=== PATIENT | female | born 1990 | race Caucasian/White ===

== ENCOUNTER 2017-01-03 17:53 | Emergency (ER) | payer SELFPAY ==
[2010-05-04 19:25] VITALS: BMI 25.2
== END 2017-01-03 20:55 | disposition home or self-care (01) ==
LOC: D.ER 17:53
DX: K64.5 Perianal venous thrombosis (principal)

== ENCOUNTER 2017-06-02 05:51 | Inpatient (IN) | payer MEDICAID ==
[~2017-06-02] VITALS: Ht 167.6 cm; Wt 75.3 kg
[2017-06-02 06:42] LABS: HEMATOCRIT 39.6 % (36.0-48.0); HEMOGLOBIN 13.5 g/dL (12-16); MCH 29.1 pg (26.0-34.0); MCHC 34.1 g/dL (31.0-37.0); MCV 85.3 fL (80.0-100.0); MEAN PLATELET VOLUME 12.5 fL (7.4-10.4); RBC 4.64 10x6/uL (4.00-5.40); RDW 14.6 % (11.5-14.5); WBC 13.7 10x3/uL (4.8-10.8)
[2017-06-02 08:43] LABS: UDS - AMPHET NEGATIVE QUAL (NEGATIVE); UDS - BARB NEGATIVE QUAL (NEGATIVE); UDS - BENZO NEGATIVE QUAL (NEGATIVE); UDS - COCAINE NEGATIVE QUAL (NEGATIVE); UDS - METH NEGATIVE QUAL (NEGATIVE); UDS - OPIATE NEGATIVE QUAL (NEGATIVE); UDS - PCP NEGATIVE QUAL (NEGATIVE); UDS - THC NEGATIVE QUAL (NEGATIVE)
--- NOTE | 2017-06-02 14:18 | NUR ---
PT UP AND ABOUT IN ROOM. IN ROOM. REQUESTING ICE FOR APPLE JUICE.
[2017-06-02 14:36] VITALS: BP 104/57
--- NOTE | 2017-06-02 15:51 | NUR ---
lights in room dim- position is on lt side. not awakened at this time.
[2017-06-02 16:33] VITALS: BP 95/53; Ht 167.6 cm; Wt 75.3 kg
--- NOTE | 2017-06-02 17:03 | NUR ---
PT REQUESTING PAIN MEDICATION- CO PAIN ABD "IN GENERAL" RATES PAIN A 9 ON SCALE OF 0-10. PAIN MED GIVEN.
--- NOTE | 2017-06-02 19:09 | NUR ---
BEDSIDE REPORT REC'D FROM Shar ZAMUDIO RN. PT SITTING ON EDGE OF BED VISITING WITH VISITORS. VISITOR HOLDING AT THIS TIME. RESPIRATIONS REGULAR AND UNLABORED, NO S/S OF DISTRESS NOTED. BED IN LOW POSITION WITH UPPER SIDE RAILS RAISED X2. CL AND PHONE WITHIN REACH.
[2017-06-02 19:48] VITALS: BP 114/75
--- NOTE | 2017-06-02 19:48 | NUR ---
SHIFT ASSESSMENT COMPLETED. VSS. FUNDUS FIRM, U1 WITH SMALL AMT RUBRA LOCHIA NOTED TO PERIPAD, NO CLOTS NOTED. BOWEL SOUNDS PRESENT AND ACTIVE X4 QUADRANTS. PT REPORTS THAT SHE IS VOIDING WITHOUT DIFFICULTY, C/O BURNING TO STITCH WITH VOIDS. ALSO REPORTS BURNING AND STINGING OF HEMORRHOIDS. STATES THAT SHE IS PASSING FLATUS. ICE WATER AND ICE CHIPS GIVEN PER REQUEST. DENIES ADDITIONAL NEEDS AT THIS TIME. S/O AT BEDSIDE AND SUPPORTIVE OF PT. BED IN LOW POSITION WITH UPPER SIDE RAILS RAISED X2. CL AND PHONE WITHIN REACH. WILL CONT TO MONITOR AND ASSIST PRN.
--- NOTE | 2017-06-02 21:22 | NUR ---
ROUNDS MADE. PT SITTING IN HIGH FOWLERS POSITION BONDING WITH . DENIES NEEDS AT THIS TIME. S/O REMAINS AT BEDSIDE. SPOKE WITH DR. VU REGARDING C/O WITH VOIDING AND HEMORRHOIDS. ORDERS REC'D FOR TUX, EPIFOAM, AND DERMAPLAST. WILL CONT TO MONITOR AND ASSIST PRN.
--- NOTE | 2017-06-02 22:06 | NUR ---
PAIN 7/10 PERIURTHEREAL REPAIR AND ABD CRAMPING AND SORNESS. REQUESTS NORCO, GIVEN PER REQUEST. EPIFOAM, TUX, AND DERMAPLAST PROVIDED TO PT PER ORDERS. INSTRUCTED ON USE, VERBALIZED UNDERSTANDING REPORTING THAT SHE HAD USED ALL WITH HER PREVIOUS DELIVERY A YEAR AGO AND RECALLED HOW TO USE. SANDWICH TRAY PROVIDED PER REQUEST. BED IN LOW POSITION WITH UPPER SIDE RAILS RAISED X2. CL AND PHONE WITHIN REACH. S/O REMAINS AT BEDSIDE AND SUPPORTIVE OF PT. WILL CONT TO MONITOR AND ASSIST PRN.
--- NOTE | 2017-06-02 22:51 | NUR ---
PAIN REASSESSMENT COMPLETED. PAIN 2-12/28. TOWELS AND WASH CLOTHES PROVIDED. PT UP TO SHOWER. DENIES NEED FOR ASSISTANCE. S/O REMAINS IN ROOM. INSTRUCTED ON CL USE IN BATHROOM FOR NEEDS, VERBALIZED UNDERSTANDING.
--- NOTE | 2017-06-02 23:14 | NUR ---
PT OUT OF SHOWER, SITTING IN BED IN HIGH FOWLERS POSITION. DENIES NEEDS AT THIS TIME. S/O REMAINS AT BEDSIDE. BED IN LOW POSITION WITH UPPER SIDE RAILS RAISED X2. CL AND PHONE WITHIN REACH. WILL CONT TO MONITOR AND ASSIST PRN.
--- NOTE | 2017-06-03 00:33 | NUR ---
BEDSIDE ROUNDS MADE. ICE CHIPS GIVEN PER REQUEST. PT REPORTS THAT SHE HAS BEEN AMBULATING AROUND UNIT. DENIES ADDITIONAL NEEDS. WILL CONT TO MONITOR AND ASSIST PRN. BED IN LOW POSITION WITH UPPER SIDE RAILS RAISED X2. CL AND PHONE WITHIN REACH.
--- NOTE | 2017-06-03 02:15 | NUR ---
ROUNDS MADE. PT AMBULATING IN [place] AT THIS TIME, STEADY GAIT NOTED. PAIN 4-5/10, PAIN MEDICATION OFFERED AND DECLINED. PT REPORTS THAT SHE WILL NOTIFY RN WHEN SHE NEEDS PAIN MEDICATIONS. WILL CONT TO MONITOR AND ASSIST PRN.
--- NOTE | 2017-06-03 02:42 | NUR ---
PT AMBULATES TO LABOR AND DELIVERY DESK, C/O PAIN, RATES 7/10. 1 TAB IBUPROFEN AND 1 TAB NORCO 5 PROVIDED TO PT AT THIS TIME. PT DENIES ANY FURTHER NEEDS. PT AMBULATING WITHOUT DIFFICULTY. WILL CONT TO MONITOR PT STATUS.
--- NOTE | 2017-06-03 03:26 | NUR ---
PAIN REASSESSMENT COMPLETE. PAIN NOW 01/28. ICE AND SODA GIVEN PER REQUEST. DENIES ADDITIONAL. S/O REMAINS AT BEDSIDE AND SUPPORTIVE OF PT. NB AT BEDSIDE RESTING QUIETLY IN CRIB. RESPIRATIONS REGULAR AND UNLABORED, NO S/S OF DISTRESS NOTED. WILL CONT TO MONITOR AND ASSIST PRN.
--- NOTE | 2017-06-03 04:39 | NUR ---
RN TO BEDSIDE FOR ROUNDS. PT LAYING ON RIGHT SIDE RESTING WITH EYES CLOSED. RESPIRATIONS REGULAR AND UNLABORED. NO S/S OF DISTRESS NOTED. BED IN LOW POSITION WITH UPPER SIDE RAILS RAISED X2. CL AND PHONE WITHIN REACH. WILL CONT TO MONITOR AND ASSIST PRN.
--- NOTE | 2017-06-03 05:57 | NUR ---
RN TO BEDSIDE FOR ROUNDS. PT LAYING ON RIGHT SIDE RESTING WITH EYES CLOSED. RESPIRATIONS REGULAR AND UNLABORED, NO S/S OF DISTRESS NOTED. S/O RESTING ON COUCH WITH EYES CLOSED. BED IN LOW POSITION WITH UPPER SIDE RAILS RAISED X2. CL AND PHONE WITHIN REACH. WILL CONT TO MONITOR AND ASSIST PRN.
[2017-06-03 07:50] VITALS: BP 97/63
--- NOTE | 2017-06-03 07:50 | NUR ---
THIS RN TO ROOM FOR SHIFT ASSESSMENT. PT SITTING UP IN BED. PT C/O PAIN IN ABD AND PERINEUM RATED 6/10 AT REST, WORSE WITH MOVEMENT. PT REQUESTING PAIN MEDICATION. SHIFT ASSESSMENT COMPLETED, VSS, SEE FLOWSHEET FOR DOC. PT DENIES HEAVY LOCHIA LAST NIGHT. PT INSTRUCTED ON WHAT TO REPORT, UNDERSTANDING VERBALIZED. DISCHARGE TO ROOM IN DISCUSSED WITH PT. PT DENIES QUESTIONS, VERBALIZES UNDERSTANDING. WILL ADMIN PRN PAIN MED ORDERED. SRUx2, CL IN REACH.
--- NOTE | 2017-06-03 08:06 | NUR ---
PT ADMIN PRN NORCO ORDERED, PT REQUESTS TO HAVE MOTRIN TOO. PT INSTRUCTED IT IS NOT YET TIME FOR MOTRIN PER ORDERED SCHEDULE. PT STATES "I HOPE HE'S GOING TO AT LEAST SEND ME HOME WITH A COUPLE OF NORCO'S FOR MY PAIN." PT INSTRUCTED DR VU HAS ONLY ORDERED IBUPROFEN FOR PAIN MANAGEMENT AFTER D/C DUE TO NO CARE AND HE DOES NOT KNOW PT'S HISTORY. PT AGITATED, STATES "I'LL JUST BUY THEM OFF THE STREET THEN" AND BEGINS TALKING ABOUT HER OTHER CHILDREN SHE HAS TO CARE FOR DEALING WITH PAIN. PT INSTRUCTED [place] RN WILL BRING INFANT IN SOON FOR 0830 FEEDING. PT STATES SHE IS TIRED AND JUST WANTS TO SLEEP. PT ALSO STATES SHE IS GOING TO [place] TO EAT BREAKFAST WITH FOB TO USE MEAL TICKET. PT INSTRUCTED SHE HAS TIME TO GO GET A QUICK BREAKFAST BEFORE INFANT FEEDING TIME. WILL RETURN FOR PAIN REASSESSMENT.
[2017-06-03 08:11] LABS: BASOPHILS 0.1 % (0-2); EOSINOPHILS 1.1 % (0-7); HEMATOCRIT 32.8 % (36.0-48.0); HEMOGLOBIN 11.1 g/dL (12-16); IMMATURE GRANULOCYTES 0.2 % (0-5); LYMPHOCYTES 25.5 % (15-50); MCH 29.1 pg (26.0-34.0); MCHC 33.8 g/dL (31.0-37.0); MCV 85.9 fL (80.0-100.0); MEAN PLATELET VOLUME 12.3 fL (7.4-10.4); MONOCYTES 6.3 % (2-11); NEUTROPHILS 66.8 % (40-80); PLATELET COUNT 153 10x3/uL (130-400); RBC 3.82 10x6/uL (4.00-5.40); RDW 14.6 % (11.5-14.5)
[2017-06-03 08:23] LABS: WBC 9.6 10x3/uL (4.8-10.8)
--- NOTE | 2017-06-03 08:55 | NUR ---
THIS RN TO ROOM FOR PT CHECK. PT, NOR ANY VISITORS FOUND IN ROOM. NSY RN NOTES THAT SHE TOOK BABY BACK TO [facility] AT 0839. WILL RETURN FOR PT CHECK.
[2017-06-03] MEDS ORDERED: IBUPROFEN600 MG PO (09:04)
--- NOTE | 2017-06-03 09:10 | NUR ---
THIS RN TO ROOM FOR PT CHECK. PT STILL NOT IN ROOM. THIS RN CHECKS [place] WHERE PT REPORTED SHE WAS GOING FOR BREAKFAST WITH FOB, PT NOT FOUND. WAITING AREAS AND MAIN ENTRANCE NEAR [place] CHECK, PT NOT FOUND. WILL RECHECK ROOM SHORTLY.
--- NOTE | 2017-06-03 09:48 | NUR ---
THIS RN TO ROOM LOOKING FOR PT, NOT FOUND. THIS RN LOOKS THOUGH WAITING AREAS. PT FOUND WALKING NEAR [place] WITH FOB. PT INSTRUCTED TO RETURN TO ROOM. PT TO ROOM WITH THIS RN. PAIN REASSESSMENT COMPLETED. PT RATES PAIN 8/10, ABD CRAMPING, WORSE AFTER WALKING. PT ADMIN PRN IBUPROFEN ORDERED. WILL PROCEED WITH DISCHARGE ORDERED.
--- NOTE | 2017-06-03 10:10 | NUR ---
DISCHARGE INSTRUCTIONS GIVEN ALONG WITH WRITTEN PRESCRIPTION FOR IBUPROFEN FOR PAIN CONTROL POST DISCHARGE TO HOME/ROOM IN. PT VERBALIZES UNDERSTANDING OF INSTRUCTIONS AND DENIES QUESTIONS. ROOMING -IN AGREEMENT REVIEWED IN DEPTH WITH PT, PT AGREES TO TERMS AND SIGNS AGREEMENT. PT CELL PHONE NUMBER OBTAINED FOR CONTACT FOR NURSERY. PT AMBULATES TO ROOM 1215 TO ROOM IN, INSTRUCTIONS AND PRESCRIPTION IN HAND.
[2017-06-04 06:13] LABS: RAPID PLASMA REAGIN Non Reactive (Non Reactive)
[2017-06-04 11:17] LABS: HEPATITIS C ANTIBODY <0.1 (0.0-0.9)
[2017-06-04 13:15] LABS: HGB SOLUBILITY (SICKLE SCREEN) Negative (Negative)
[2017-06-04 14:19] LABS: RUBELLA IGG 4.21 index (Immune >0.99)
== END 2017-06-03 10:10 | disposition home or self-care (01) | DRG 775 ==
LOC: D.LDO 05:51 → D.LD 06:24
PROVIDERS: ADMIT Obstetrics & Gynecology
PROC: 10E0XZZ Delivery of Products of Conception, External Approach (ICD-10-PCS; principal; 2017-06-02)
PROC: 10907ZC Drainage of Amniotic Fluid, Therapeutic from Products of Conception, Via Natural or Artificial Opening (ICD-10-PCS; 2017-06-02)
DX: O80 Encounter for full-term uncomplicated delivery (principal); Z3A.39 39 weeks gestation of pregnancy; Z37.0 Single live birth

== ENCOUNTER 2018-06-17 09:42 | Emergency (ER) | payer MEDICAID ==
[~2018-06-17] VITALS: Ht 167.6 cm; Wt 59.1 kg
[~2018-06-17 09:42] MED LIST: IBUPROFEN600 MG PO
[2018-06-17 09:58] VITALS: Ht 167.6 cm; Wt 59.1 kg
[2018-06-17] MEDS ORDERED: ULTRAM50 MG PO (10:24)
[2018-06-17] MEDS ORDERED: CLEOCIN HCL300 MG PO (10:24)
[2018-06-17 11:55] VITALS: BP 129/74
== END 2018-06-17 11:56 | disposition home or self-care (01) ==
LOC: D.ER 09:42
DX: N61.1 Abscess of the breast and nipple (principal); F17.200 Nicotine dependence, unspecified, uncomplicated

== ENCOUNTER 2019-04-12 06:34 | Inpatient (IN) | payer MEDICAID ==
[~2019-04-12 06:34] MED LIST changes: +CLEOCIN HCL300 MG PO; +ULTRAM50 MG PO
[2019-04-12 07:35] LABS: BASOPHILS 0.1 % (0-2); EOSINOPHILS 1.2 % (0-7); HEMATOCRIT 35.3 % (36.0-48.0); HEMOGLOBIN 12.3 g/dL (12-16); IMMATURE GRANULOCYTES 0.5 % (0-5); LYMPHOCYTES 28.8 % (15-50); MCH 28.7 pg (26.0-34.0); MCHC 34.8 g/dL (31.0-37.0); MCV 82.5 fL (80.0-100.0); MEAN PLATELET VOLUME 11.8 fL (7.4-10.4); MONOCYTES 8.4 % (2-11); PLATELET COUNT 294 10x3/uL (130-400); RBC 4.28 10x6/uL (4.00-5.40); RDW 14.7 % (11.5-14.5); WBC 14.5 10x3/uL (4.8-10.8)
[2019-04-12 10:44] VITALS: BP 111/63; BMI 24.7
--- NOTE | 2019-04-12 12:13 | NUR ---
INFANT TO ROOM VIA CRIB, SWADDLED X 2 AND HAT ON.PT IN SEMI FOWLERS POSITION. FOB ON COUCH. EXPLAINED TO PT THAT NEEDS TO REMAIN SWADDLED AND WITH THE HAT ON. BOTH VERB. UNDERSTANDING. PT OPTS TO LEAVE IN CRIB AT THIS TIME. SANDWICH TRAY PROVIDED PER REQUEST. FUNDUS REMAINS FIRM AND MIDLINE. U/U. LIGHT RUBRA LOCHIA NOTED ON PARTH PAD. NO CLOTS NOTED. PT RATING PAIN 8/10 IN ABDOMEN AND DESCRIBES CRAMPING. TORADOL GIVEN PRN ORDERED. PT DENIES FURTHER NEEDS AT THIS TIME.
[2019-04-12 12:21] LABS: UDS - AMPHET NEGATIVE QUAL (NEGATIVE); UDS - BARB NEGATIVE QUAL (NEGATIVE); UDS - BENZO NEGATIVE QUAL (NEGATIVE); UDS - COCAINE NEGATIVE QUAL (NEGATIVE); UDS - OPIATE NEGATIVE QUAL (NEGATIVE); UDS - PCP NEGATIVE QUAL (NEGATIVE); UDS - THC POSITIVE QUAL (NEGATIVE)
--- NOTE | 2019-04-12 13:50 | NUR ---
PT AND FOB NOT IN ROOM
[2019-04-12 15:05] VITALS: BP 98/60
--- NOTE | 2019-04-12 15:05 | NUR ---
PT IN HIGH FOWLERS POSITION. UP TO FAMILY ARMS BONDING. VSS, SEE FLOW SHEET. FUNDUS FIRM U/U. LIGHT RUBRA LOCHIA NOTED. NO CLOTS EXPRESSED. PT RATES PAIN 6/10 AND DESCRIBES CRAMPING. PT DENIES FURTHER NEEDS AT THIS TIME.
--- NOTE | 2019-04-12 16:25 | NUR ---
REPORT OF PT CONTINUED REPORT OF PAINFUL CRAMPING CALLED TO DR OLIVER. NEW ORDER RECIEVED AND NOTED.
--- NOTE | 2019-04-12 16:50 | NUR ---
REPORT TO DR OLIVER OF PT ALLERGIES. ORDER RECIEVED TO DC TYLENOL 3 ORDERS AND TO ORDER ULTRAM 50MG PO Q 6HRS PRN FOR PAIN.
--- NOTE | 2019-04-12 17:26 | NUR ---
PT SITTING UP ON SIDE OF BED EATING REGULAR DIET TRAY. PT RATING PAIN 9/10 AND DESCRIBES CRAMPING IN LOWER ABDOMEN AND BACK. ULTRAM 50MG GIVEN PO. VS OBTAINED AND STABLE. SEE FLOWSHEET. APPLE JUICE AND SPRITE PROVIDED. PT DENIES FURTHER NEEDS.
[2019-04-12 17:27] VITALS: BP 114/68
--- NOTE | 2019-04-12 18:30 | NUR ---
PT NOT IN ROOM AT THIS TIME.
--- NOTE | 2019-04-12 19:22 | NUR ---
BEDSIDE SHIFT REPORT COMPLETED WITH SHELBY GALLARDO AT THIS TIME TO ASSUME PATIENT CARE.
[2019-04-12 19:25] VITALS: BP 95/40
--- NOTE | 2019-04-12 19:25 | NUR ---
SALINE LOCK REMOVED PER PT REQUEST, SHE HAD BUMPED IT SEVERAL TIMES AND IT WAS COMING OUT AND BOTHERING HER. PRESSURE AND BANDAID APPLIED, PT TOLERATED WELL.
--- NOTE | 2019-04-12 19:28 | NUR ---
SHIFT ASSESSMENT COMPLETED AT THIS TIME, SEE FLOWSHEET. BED REMAINS LOCKED IN LOW POSITION, SIDE RAIL UPX2, CALL MANZANO AND TRAY TABLE IN REACH, PT ENCOURAGED TO CALL WITH ANY NEEDS.
--- NOTE | 2019-04-12 20:00 | NUR ---
SHELBY MCBRIDE TO ROOM TO BRING BABY BACK VIA OPEN CRIB. PT DENIES NEEDS, REQUESTS THAT THE L&D NURSE AND THE NURSERY NURSE CLUSTER HER CARE SO SHE CAN SLEEP
--- NOTE | 2019-04-12 21:04 | NUR ---
PT ASLEEP BUT EASILY AWAKENED. SCHEDULED DOSE OF CYTOTEC GIVEN AT THIS TIME. NO DISTRESS NOTED. Rubens RODRÍGUEZ RN
--- NOTE | 2019-04-12 21:05 | NUR ---
IN TO PTS ROOM TO ADMINISTER CYTOTEC AND PT IS NOT IN HER ROOM AT THIS TIME.
--- NOTE | 2019-04-12 22:22 | NUR ---
PT IS BACK IN HER ROOM, CYTOTEC 200MCG PO ADMINISTERED BY THIS RN. EMAR SHOWING THAT SHE WAS GIVEN CYTOTEC AT 2104 BUT THIS RN DID NOT ADMINISTER CYTOTEC DUE TO PATIENT NOT BEING IN THE ROOM. WILL CONTACT PHARMACY IN THE MORNING.
--- NOTE | 2019-04-13 01:18 | NUR ---
PATIENT ADMINISTERED ULTRAM PER MD ORDERS AND PT REQUEST, SEE EMAR. PT GIVEN SNACKS PER REQUEST, DENIES OTHER NEEDS, WILL CONTINUE TO MONITOR.
--- NOTE | 2019-04-13 01:21 | NUR ---
PT RESTING QUIETLY WITH EYES CLOSED, RESPIRATIONS EVEN AND NON LABORED, NO SIGNS OF DISTRESS NOTED. WILL CONTINUE TO MONITOR.
--- NOTE | 2019-04-13 03:18 | NUR ---
ADMINISTERED TORADOL 10MG PO PER PT REQUEST. NO FURTHER NEEDS IDENTIFIED.
--- NOTE | 2019-04-13 04:00 | NUR ---
CALLED TO ROOM BY PATIENT, PT ASKING IF I COULD COME SIT IN THE ROOM WITH THE BABY WHILE SHE GOES OUT TO SMOKE BECAUSE THE NURSERY NURSE STATES THAT SHE IS DOING HEARING SCREENS AND CANT WATCH THE BABY. INFORMED PT THAT I COULDNT SIT IN HER ROOM DUE TO THE VOLUME OF PTS ON LABOR AND DELIVERY. SHE ASKED IF I COULD CALL YELITZA TO REQUEST THAT THE BABY GO TO THE NURSERY. INFORMED PT THAT I WOULD. BERVERLY CALLED WITH NO ANSWER AT THIS TIME.
--- NOTE | 2019-04-13 04:10 | NUR ---
CALLED DR OLIVER TO NOTIFY HIM THAT PATIENTS PAIN IS NOT BEING CONTROLLED WITH THE TORADOL AND ULTRAM, NEW ORDER NOTED FOR NORCO 5/325MG PO Q4HRS PRN PAIN.
--- NOTE | 2019-04-13 06:50 | NUR ---
REPORT TO AM SHIFT TO ASSUME PT CARE.
[2019-04-13 07:30] VITALS: BP 95/60
--- NOTE | 2019-04-13 07:30 | NUR ---
AM ASSESSMENT COMPLETED. PT DENIES HEAVY BLEEDING OR PASSING CLOTS. SEE FLOWSHEET FOR ASSESSMENT. SRUP X2, CALL LIGHT AND PHONE WITHIN REACH.
--- NOTE | 2019-04-13 07:50 | NUR ---
REPORT TO AM SHIFT TO ASSUME PT CARE.
--- NOTE | 2019-04-13 08:50 | NUR ---
ROUNDS MADE. PT OUT OF ROOM AT THIS TIME. SIG OTHER LYING ON THE SOFA W/INFANT IN OPEN CRIB AT BEDSIDE.
--- NOTE | 2019-04-13 09:19 | NUR ---
THIS RN TO BEDSIDE FOR PAIN MEDICATION ADMIN. SEE EMAR. PLANS FOR ROOMING IN EXPLAINED TO PT. PT VERBALIZES UNDERSTANDING AND AGREEBLE. CURRENTLY RATES PAIN10/10. FRESH ICE WATER SERVED,.
--- NOTE | 2019-04-13 10:23 | NUR ---
DR OLIVER ON UNIT. ORDERS REC'D PATIENT MAY BE DISCHARGED TO ROOMING IN.
--- NOTE | 2019-04-13 10:45 | NUR ---
pt ambulatory in hallway, with infant in crib, pt tearful, stating "i'm so afraid they will take my baby". to nsy at this time. pt comforted. pt denies all needs at this time.
--- NOTE | 2019-04-13 11:29 | MORECARE ---
CASE MANAGEMENT DISCHARGE SUMMARY PATIENT: KAMINI JIMENEZ UNIT: [id number] ADM DATE: 04/12/19 AGE: 28 : 88 SEX: F ROOM/BED: D.1257 AUTHOR: ELVA MERRILL PHYSICIAN: REFERRING PHYSICIAN: TOMER OLIVER MD DATE OF SERVICE: 04/13/19 Discharge Plan Patient Name: KAMINI JIMENEZ Facility: [facility]:[place] : 1990 Planned Disposition: Home Anticipated Discharge Date: Discharge Date: Expected LOS: Initial Reviewer: [email or web address] Initial Review Date: 04/11/2019 Generated: 04/13/19 12:29 pm Comments DCP- Discharge Planning Updated by NICOLE: Cydney Trinhman on 04/12/19 2:[address] Patient Name: KAMINI JIMENEZ Admission Status: Elective Accout number: [id number] Admission Date: 04-12-2019 : 1990 Admission Diagnosis: Attending: Tomer Oliver Current LOS: 1 Anticipated DC Date: Planned Disposition: Primary Insurance: MEDICAID [place] Discharge Planning Comments: CM CONSULT FOR THC + MOM. AFTER OBTAINING VERBAL CONSENT TO SPEAK TO PT. I EDUCATED PT ON CM ROLE. THIS IS MOMS 5TH BABY. PT STATES SHE HAS ALL BABY EQUIPMENT SHE NEEDS. SHE HAS TO CALL TOMORROW TO START HER WIC SERVICES FOR BABY. SHE AWARE CPS WILL BE CALLED ON THE + DRUG SCREEN AND STATES 2 OF HER OTHER CHILDREN WERE OPEN CASES WELL. SHE HAS SUPPORT FOR FAMILY AND KIDS. SHE HAD CARE DURING . SHE DENIES ANY CM NEEDS AND FEELS LIKE HOME IS A SAFE DC PLAN. CM WILL CONTINUE TO FOLLOW NEEDED. Inspector Penetrant: Cydney Disla Patient Name: KAMINI JIMENEZ Page [id number] at 1129 All edits/amendments must be made on the electronic document DICTATION DATE: 04/13/191127 COATING MANAGER: DORA 04/13/191127 RPT#: [id number] DC DATE: STATUS: ADM IN [facility] [address] [place] [address] END OF REPORT
--- NOTE | 2019-04-13 14:54 | NUR ---
PT REQUESTS PAIN MEDICATION, SEE EMAR FOR ALL MEDS ADM BY THIS RN. TORADOL 10 MG ONE PO GIVEN, AND HYDROCODONE 5 MG ONE PO GIVEN WITH ICE WATER. DISCHARGE INSTRUCTIONS EXPLAINED TO PT, PT DENIES QUESTIONS, COPIES PROVIDED TO PT. WILL CONTACT DR. OLIVER FOR SCRIPT FOR PT TO TAKE HOME.
--- NOTE | 2019-04-13 15:00 | NUR ---
DR. OLIVER CONTACTED, AND WRITES FOR PT TO HAVE ULTRAM 50 MG ONE PO Q 8 HRA PRN PAIN.
--- NOTE | 2019-04-13 16:00 | NUR ---
DISCHARGE INSTRUCTIONS EXPLAINED TO PT, WITH COPIES OF D/C INSTRUCTIONS GIVEN TO PT, ALONG WITH APPT CARD, AND EMERGENCY NUMBERS. PT DENIES QUESTIONS. PT STATES "I HAVE TO GO CHECK ON MY BABY GIRL AT HOME, AND WILL COME BACK IN A LITTLE BIT". SIG OTHER WITH REMAINS WITH PT AT THIS TIME.
--- NOTE | 2019-04-13 17:25 | NUR ---
PT BACK ON UNIT, WITH PRESCRIPTION FOR ULTRAM GIVEN TO PT. ROOMING IN CONTRACT PLACED ON CHART. PT DENIES ALL OTHER NEEDS AT THIS TIME.
[2019-04-14 07:18] LABS: RAPID PLASMA REAGIN Non Reactive (Non Reactive)
--- NOTE | 2019-04-14 09:50 | MORECARE ---
CASE MANAGEMENT DISCHARGE SUMMARY PATIENT: AKMINI IJMENEZ UNIT: [id number] ADM DATE: 04/12/19 AGE: 28 : 88 SEX: F ROOM/BED: D.1220 AUTHOR: ELVA MERRILL PHYSICIAN: REFERRING PHYSICIAN: TOMER OLIVER MD DATE OF SERVICE: 04/14/19 Discharge Plan Patient Name: KAMINI JIMENEZ Facility: [facility]:[place] : 1990 Planned Disposition: Home Anticipated Discharge Date: Discharge Date: 04/13/2019 Expected LOS: Initial Reviewer: [email or web address] Initial Review Date: 04/11/2019 Generated: 04/14/19 10:50 am Comments DCP- Discharge Planning Updated by NICOLE: Cydney Disla on 04/12/19 2:[address] Patient Name: KAMINI JIMENEZ Admission Status: Elective Accout number: [id number] Admission Date: 04-12-2019 : 1990 Admission Diagnosis: Attending: Tomer Oliver Current LOS: 1 Anticipated DC Date: Planned Disposition: Primary Insurance: MEDICAID [place] Discharge Planning Comments: CM CONSULT FOR THC + MOM. AFTER OBTAINING VERBAL CONSENT TO SPEAK TO PT. I EDUCATED PT ON CM ROLE. THIS IS MOMS 5TH BABY. PT STATES SHE HAS ALL BABY EQUIPMENT SHE NEEDS. SHE HAS TO CALL TOMORROW TO START HER [facility] SERVICES FOR BABY. SHE AWARE CPS WILL BE CALLED ON THE + DRUG SCREEN AND STATES 2 OF HER OTHER CHILDREN WERE OPEN CASES WELL. SHE HAS SUPPORT FOR FAMILY AND KIDS. SHE HAD CARE DURING . SHE DENIES ANY CM NEEDS AND FEELS LIKE HOME IS A SAFE DC PLAN. CM WILL CONTINUE TO FOLLOW NEEDED. Math And Sciences Department Chair: Cydney Disla Last DP export: 04/13/19 10:29 a Patient Name: KAMINI JIMENEZ Page [phone] at 0950 All edits/amendments must be made on the electronic document DICTATION DATE: 04/14/19 0949 EDUCATION REVIEWER: DORA 04/14/19 0949 RPT#: [id number] DC DATE:04/13/19 STATUS: DIS IN [facility] [address] [place] [address] END OF REPORT
[2019-04-18 12:09] LABS: UDSC - AMPHET Negative ng/mL (Cutoff=1000); UDSC - BARB Negative ng/mL (Cutoff=300); UDSC - BENZO Negative ng/mL (Cutoff=300); UDSC - COC Negative ng/mL (Cutoff=300); UDSC - METH Negative ng/mL (Cutoff=300); UDSC - OPIATES Negative ng/mL (Cutoff=300); UDSC - PCP Negative ng/mL (Cutoff=25); UDSC - PROPOXY Negative ng/mL (Cutoff=300); UDSC - THC Positive (Cutoff=50)
== END 2019-04-13 17:45 | disposition home or self-care (01) | DRG 807 ==
LOC: D.LDO 06:34 → D.LD 07:02 → D.WS 04-13 16:00
PROVIDERS: ADMIT Obstetrics & Gynecology; ATTEND Obstetrics & Gynecology
PROC: 10D07Z6 Extraction of Products of Conception, Vacuum, Via Natural or Artificial Opening (ICD-10-PCS; principal; 2019-04-12)
DX: O76 Abnormality in fetal heart rate and rhythm complicating labor and delivery (principal); Z37.0 Single live birth; Z3A.39 39 weeks gestation of pregnancy; O70.0 First degree perineal laceration during delivery

== ENCOUNTER 2021-03-01 14:07 | Emergency (ER) | payer MEDICAID ==
[~2021-03-01] VITALS: Ht 167.6 cm; Wt 57.7 kg
[2021-03-01 14:13] VITALS: Ht 167.6 cm; Wt 57.7 kg
[2021-03-01] MEDS ORDERED: HYDROCODONE-AC1 EAC2 PO (14:15)
[2021-03-01 14:35] LABS: BASOPHILS 0.2 % (0-2); EOSINOPHILS 0.3 % (0-7); HEMATOCRIT 44.1 % (36.0-48.0); HEMOGLOBIN 15.1 g/dL (12-16); IMMATURE GRANULOCYTES 0.2 % (0-5); LYMPHOCYTE ABS# 2.39 10x3/uL (1.18-3.74); LYMPHOCYTES 20.4 % (15-50); MCH 29.5 pg (26.0-34.0); MCHC 34.2 g/dL (31.0-37.0); MCV 86.1 fL (80.0-100.0); MEAN PLATELET VOLUME 11.5 fL (7.4-10.4); MONOCYTES 8.8 % (2-11); NEUTROPHIL ABS# 8.23 10x3/uL (1.56-6.13); NEUTROPHILS 70.1 % (40-80); RBC 5.12 10x6/uL (4.00-5.40); RDW 14.8 % (11.5-14.5); WBC 11.7 10x3/uL (4.8-10.8)
[2021-03-01 14:44] LABS: CALC OSMOLALITY 274 mosm/kg (275-300); CALCIUM 9.8 mg/dL (8.5-10.1); CARBON DIOXIDE 23.3 mmol/L (21.0-32.0); CHLORIDE - SERUM 102 mmol/L (98-107); CREATININE - SERUM 0.8 mg/dL (0.6-1.3); GLUCOSE 94 mg/dL (74-106); POTASSIUM - SERUM 3.7 mmol/L (3.5-5.1); SODIUM 138 mmol/L (136-145); UREA NITROGEN 10 mg/dL (7-18); eGFR NON AFRICAN AMERICAN 88 mL/min (90-120)
[2021-03-01 14:53] LABS: ALBUMIN 4.1 g/dL (3.4-5.0); ALKALINE PHOSPHATASE 68 U/L (30-120); ALT (SGPT) 16 U/L (10-68); AMYLASE - SERUM 35 U/L (25-115); BILIRUBIN - TOTAL 0.56 mg/dL (0.2-1.3); PROTEIN - SERUM 8.2 g/dL (6.4-8.2)
[2021-03-01 14:59] LABS: LIPASE 30 U/L (73-393); TROPONIN-I < 0.017 ng/mL (0.000-0.060)
[2021-03-01 15:01] LABS: HCG URINE NEGATIVE (NEGATIVE)
[2021-03-01 15:02] LABS: BILIRUBIN NEGATIVE (NEGATIVE); KETONE NEGATIVE (NEGATIVE); NITRITE NEGATIVE (NEGATIVE); UROBILINOGEN NORMAL mg/dL (< 2)
[2021-03-01 15:02] LABS: PLATELET COUNT 192 10x3/uL (130-400)
[2021-03-01] MEDS ORDERED: HYDROCODON-ACE1 EAC7 PO (17:09)
[2021-03-01 17:32] VITALS: BP 105/63
== END 2021-03-01 17:42 | disposition home or self-care (01) ==
LOC: D.ER 14:07
PROVIDERS: Family Medicine
DX: R10.11 Right upper quadrant pain (principal)